=== PATIENT | female | born 1980 | race Caucasian/White ===

== ENCOUNTER 2023-03-22 15:35 | Emergency (ER) | payer MEDICAID ==
[~2023-03-22] VITALS: Ht 157.5 cm; Wt 64.4 kg
[2023-03-22 16:03] VITALS: O2SAT 98
[2023-03-22 16:19] LABS: BASOPHILS % 0.2 % (0.0-2.0); EOSINOPHILS % 0.7 % (0.0-5.0); HEMATOCRIT. 39.4 % (36.0-48.0); HEMOGLOBIN. 13.4 g/dL (12.0-16.0); MEAN PLATELET VOLUME 8.3 fl (7.4-10.4); NEUTROPHILS % 62.1 % (40.0-76.0); PLATELET 265 x1000/uL (130-400); RED BLOOD CELL COUNT 4.32 mill/uL (4.2-5.4); RED CELL DISTRIBUTION WIDTH 13.3 % (11.6-14.6); WHITE BLOOD COUNT 4.6 x1000/uL (4.5-11.0)
[2023-03-22 16:42] LABS: CHLORIDE 107 mEq/L (98-107); INDEX HEMOLYSI 1 (1-3); INDEX ICTERIC 1 (1-4); INDEX LIPEMIC 1 (1-3); POTASSIUM 4.3 mEq/L (3.5-5.1); SODIUM 138 mEq/L (136-145)
[2023-03-22 16:50] LABS: ALANINE AMINOTRANSFERASE 21 IU/L (13-61); ALBUMIN 3.5 g/dL (3.4-5.0); ASPARTATE AMINOTRANSFERASE 13 IU/L (15-37); BILIRUBIN TOTAL 0.6 mg/dL (0.1-1.0); CALCIUM 8.3 mg/dL (8.5-10.1); CARBON DIOXIDE 28 mEq/L (21-32); CREATININE 0.9 mg/dL (0.6-1.3); GLUCOSE 90 mg/dL (70-105); PROTEIN TOTAL 7.1 g/dL (6.0-8.3); UREA NITROGEN BLOOD 16 mg/dL (7-21)
[2023-03-22 16:51] LABS: CLARITY URINE CLEAR (CLEAR); COLOR URINE YELLOW (YELLOW); GLUCOSE URINE NEGATIVE (NEGATIVE); KETONES URINE TRACE (NEGATIVE); LEUKOCYTE ESTERASE URINE NEGATIVE (NEGATIVE); NITRITE URINE NEGATIVE (NEGATIVE); OCCULT BLOOD URINE NEGATIVE (NEGATIVE); PROTEIN URINE NEGATIVE (NEGATIVE); SPECIFIC GRAVITY URINE 1.023 (1.005-1.030)
[2023-03-22] MEDS ORDERED: KETOROLAC 60MG/2ML VIAL IM ONE (17:15)
[2023-03-22 18:00] LABS: HCG SCREEN NEGATIVE
[2023-03-22] MEDS ORDERED: KETOROLAC 30MG/ML VIAL IM NR (19:00)
[2023-03-22] MEDS ORDERED: IBUP-2029 MT (19:13)
[2023-03-22 19:15] VITALS: BP 104/51
[2023-03-22 19:35] VITALS: PULSE 80; RESP 16; TEMP 98.2
== END 2023-03-22 19:36 | disposition home or self-care (01) ==
LOC: ER 15:35
DX: R10.32 Left lower quadrant pain (principal); Z90.49 Acquired absence of other specified parts of digestive tract; Z98.890 Other specified postprocedural states; Z68.26 Body mass index [BMI] 26.0-26.9, adult
CPT/HCPCS: 99285; 76830; 76856; 80053; 81003; 81025; 84703; 83690; 85025; 36415; 96372; J1885